=== PATIENT | female | born 1985 | race Caucasian/White ===

== ENCOUNTER 2019-11-08 07:08 | Inpatient (IN) | payer BC ==
[2019-11-08] MEDS ORDERED: Lidocaine 1% (PF) 30 ML VIAL ONE (07:46)
[2019-11-08] MEDS ORDERED: Ibuprofen 800 MG TAB PO PRN (07:56)
[2019-11-08] MEDS ORDERED: Misoprostol 200 MCG TAB PR PRN (07:56)
[2019-11-08] MEDS ORDERED: Diphenoxylate HCl/Atropine Tablet PO PRN ×2 (07:56)
[2019-11-08] MEDS ORDERED: Lidocaine 1% (PF) 30 ML VIAL SC PRN (07:56)
[2019-11-08] MEDS ORDERED: HYDROcodone/Acetaminophen 5/325 mg Tablet PO PRN ×4 (07:56→15:50)
[2019-11-08] MEDS ORDERED: hydrALAZINE 20 MG/ML VIAL SLOW IVP PRN ×2 (07:56→15:50)
[2019-11-08] MEDS ORDERED: Methylergonovine 0.2 MG/ML VIAL IM PRN ×2 (07:56→15:50)
[2019-11-08] MEDS ORDERED: Acetaminophen 500 MG TAB PO PRN (07:56)
[2019-11-08] MEDS ORDERED: Butorphanol Tartrate 1 MG/ML VIAL SLOW IVP PRN (07:56)
[2019-11-08] MEDS ORDERED: Carboprost 250 MCG/ML AMP IM PRN (07:56)
[2019-11-08] MEDS ORDERED: Promethazine HCl 25 MG/ML VIAL IM PRN ×3 (07:56→15:50)
[2019-11-08] MEDS ORDERED: Ondansetron PF 4 MG/2 ML Vial IVP PRN ×3 (07:56→15:50)
[2019-11-08] MEDS: Lactated Ringer's 1,000 ML IV SCH ×2 (08:02→09:08)
[2019-11-08 08:16] LABS: Hemoglobin 13.5 g/dL (12.0-16.0); Mean Corpuscular HGB CONC 34.7 g/dL (32.0-36.0); Mean Corpuscular Hemoglobin 31.8 pg (27.0-31.0); Mean Corpuscular Volume 91.8 fL (78.0-98.0); Mean Platelet Volume 7.8 fL (7.4-10.4); Platelet Count 304 thou/uL (130-400); RBC Distribution Width 11.9 % (11.5-14.5); Red Blood Cell (RBC) Count 4.24 mill/uL (4.20-5.40); White Blood Cell (WBC) Count 9.5 thou/uL (4.8-10.8)
[2019-11-08] MEDS ORDERED: Fentanyl 4 mcg/Bup 0.1% Cadd 100 ML ONE (08:16)
[2019-11-08 08:34] VITALS: BMI 34.1
[2019-11-08 08:54] LABS: Syphilis Antibody Nonreactive (Nonreactive); Syphilis Antibody Index 0.04 S/CO (<1.00 Non-Reactive)
[2019-11-08 08:55] LABS: HBSAg Index 0.18 S/CO (0-0.99); Hep B Surf Ag Non-Reactive S/CO (NonReactive)
[2019-11-08] MEDS ORDERED: Lactated Ringer's 500 ML IV PRN (09:19)
[2019-11-08] MEDS ORDERED: diphenhydrAMINE 50 MG/ML VIAL IVP PRN (09:19)
[2019-11-08] MEDS ORDERED: Naloxone HCl 0.4 mg/ml Vial IVP PRN ×2 (09:19)
[2019-11-08] MEDS ORDERED: Acetaminophen 325 MG TAB PO PRN (09:19)
[2019-11-08] MEDS ORDERED: ePHEDrine/0.9% NaCl/PF SYRINGE 50 mg/10 ml SLOW IVP PRN (09:19)
[2019-11-08] MEDS ORDERED: Communication Order-Pharmacy FS PRN (09:30)
[2019-11-08] MEDS ORDERED: Fentanyl 4 mcg/Bupivacaine 0.1% Cassette 100 ML EPIDURAL SCH (09:30)
--- NOTE | 2019-11-08 12:34 | PDOC.LDHP ---
Labor and Delivery H&P Chief complaint: contractions HPI: 34 y/o at 38 and 6/7 weeks presents for contractions/labor/SROM. Due date: 11/16/18 Grav: 3 Para: 1 Current complications: none Abnormal US findings: No Current medications: pre- vitamins Allergies/Adverse Reactions: Allergies Allergy/AdvReac Type Severity Reaction Status Date / Time No Known Allergies Allergy Verified 11/08/19 08:32 Social history: none - Physical Exam Vital signs reviewed and normal: yes General: NAD Heart: RRR Lungs: CTAB Abdomen: gravid Extremeties: no edema FHT: category 1 - Vaginal Exam cm dilated: 8 Effacement: 100% Station: 1+ - Assessment L&D Assessment: term rupture in membranes - Plan Plan: admit to L&D
[2019-11-08] MEDS: NS / Oxytocin 40 units/1000ml 1,000 ML IV PRN ×2 (13:40→14:31)
[2019-11-08] MEDS ORDERED: Bupivacaine PF 0.5% 30 ML VIAL ONE (13:56)
[2019-11-08] MEDS ORDERED: Preparation H Ointment 28 GM TUBE PR PRN (15:50)
[2019-11-08] MEDS ORDERED: Benzocaine-Menthol 82.5 ML CAN TOP PRN (15:50)
[2019-11-08] MEDS ORDERED: Bisacodyl 10 MG SUPP PR PRN (15:50)
[2019-11-08] MEDS ORDERED: diphenhydrAMINE 25 MG CAP PO PRN (15:50)
[2019-11-08] MEDS ORDERED: Zolpidem Tartrate 5 MG TAB PO PRN (15:50)
[2019-11-08] MEDS ORDERED: Milk Of Magnesia 30 ML UDCUP PO PRN (15:50)
[2019-11-08] MEDS ORDERED: NS / Oxytocin 40 units/1000ml 1,000 ML IV SCH (15:50)
[2019-11-08] MEDS ORDERED: Misoprostol 200 MCG TAB VAG PRN (15:50)
[2019-11-08] MEDS ORDERED: Lanolin Ointment 7 GM TUBE TOP PRN (15:50)
[2019-11-08] MEDS: Ferrous Sulfate 325 MG TAB PO SCH (18:26)
[2019-11-09] MEDS: Docusate Calcium (SURFAK) 240 MG CAP PO SCH ×2 (02:26→09:09)
[2019-11-09] MEDS: Ibuprofen 800 MG TAB PO SCH ×3 (02:26→13:38)
[2019-11-09 06:14] LABS: Hemoglobin 11.6 g/dL (12.0-16.0); Mean Corpuscular HGB CONC 34.1 g/dL (32.0-36.0); Mean Corpuscular Hemoglobin 31.9 pg (27.0-31.0); Mean Corpuscular Volume 93.6 fL (78.0-98.0); Mean Platelet Volume 7.5 fL (7.4-10.4); Platelet Count 240 thou/uL (130-400); RBC Distribution Width 12.2 % (11.5-14.5); Red Blood Cell (RBC) Count 3.64 mill/uL (4.20-5.40); White Blood Cell (WBC) Count 11.2 thou/uL (4.8-10.8)
[2019-11-09 08:33] VITALS: BP 132/82; TEMP 97.9
[2019-11-09] MEDS ORDERED: Measles/Mumps/Rubella 10 MCG/0.5 ML VIAL SC ONE (09:00)
[2019-11-09] MEDS ORDERED: Adacel (T-DAP) 0.5 ML SYRINGE IM ONE (09:00)
[2019-11-09] MEDS ORDERED: Varicella virus, LIVE 0.5 ML VIAL SC ONE (09:00)
[2019-11-09] MEDS: Ferrous Sulfate 325 MG TAB PO SCH (09:08)
== END 2019-11-09 15:50 | disposition home or self-care (01) | DRG 807 ==
LOC: L&D/OP 07:08 → L&D 08:16 → 3SW 16:46
PROVIDERS: ADMIT Obstetrics & Gynecology; ATTEND Obstetrics & Gynecology
PROC: 10E0XZZ Delivery of Products of Conception, External Approach (ICD-10-PCS; principal; 2019-11-08)
DX: O80 Encounter for full-term uncomplicated delivery (principal); Z37.0 Single live birth; Z3A.38 38 weeks gestation of pregnancy
CPT/HCPCS: 36415; 51702; 85027; 86780; 86850; 86900; 86901; 87340; 90715; 99285; J2001; S0020